=== PATIENT | male | born 1995 | race Caucasian/White ===

== ENCOUNTER 2020-10-21 19:17 | Emergency (ER) | payer BC ==
[~2020-10-21] VITALS: Ht 180.3 cm; Wt 74.0 kg
[2020-10-21] MEDS ORDERED: FAMOTIDINE 20 MG TABLET ONE (20:29)
[2020-10-21] MEDS ORDERED: ONDANSETRON ODT 4 MG ONE (20:29)
[2020-10-21] MEDS ORDERED: MAALOX/HYOSCYAMINE/LIDOCAINE 45 ML BTL PO ONE (20:30)
[2020-10-21] MEDS ORDERED: MAALOX/HYOSCYAMINE/LIDOCAINE 45 ML BTL ONE (20:30)
[2020-10-21] MEDS ORDERED: PLEASE ENTER ALLERGIES MC SCH (20:30)
[2020-10-21] MEDS ORDERED: FAMOTIDINE 20 MG TABLET PO ONE (20:30)
[2020-10-21] MEDS ORDERED: ONDANSETRON ODT 4 MG PO ONE (20:30)
--- NOTE | 2020-10-21 20:32 | NUR ---
PT MEDICATED PER MAR AT THIS TIME. MOM REMAINS AT BEDSIDE
[2020-10-21 20:49] LABS: BASOPHILS % (AUTO) 0 % (0-1); EOSINOPHILS % (AUTO) 2 % (1-7); LYMPHOCYTES % (AUTO) 21 % (22-44); MEAN CORPUSCULAR HEMOGLOBIN 29.1 pg (27.5-34.5); MEAN PLATELET VOLUME 10.1 fL (7.4-10.4); MONOCYTES % (AUTO) 12 % (2-9); NEUTROPHILS % (AUTO) 64 % (42-75); PLATELET COUNT 221 x10^3/uL (130-400); RED BLOOD COUNT 5.91 x10^6/uL (4.38-5.82)
[2020-10-21 21:00] LABS: ALBUMIN 3.7 g/dL (3.4-5.0); ANION GAP 9 mmol/L (5-15); CALCIUM 9.1 mg/dL (8.5-10.1); CHLORIDE 104 mmol/L (98-107)
[2020-10-21 21:04] LABS: ALANINE AMINOTRANSFERASE 32 U/L (12-78); ALKALINE PHOSPHATASE 54 U/L (45-117); BILIRUBIN,TOTAL 0.7 mg/dL (0.2-1.0); CREATININE 1.01 mg/dL (0.7-1.3); TOTAL PROTEIN 7.6 g/dL (6.4-8.2)
[2020-10-21 21:10] LABS: MD NO
--- NOTE | 2020-10-21 21:30 | NUR ---
PT STS FEELS A LITTLE BETTER BUT DOES NOT KNOW IF MEDS HELPED. AWAITING US READ
[2020-10-21 22:07] VITALS: BP 118/71
== END 2020-10-21 22:28 ==
LOC: ED 22:27
DX: K27.3 Acute peptic ulcer, site unspecified, without hemorrhage or perforation (principal)
CPT/HCPCS: 36415; 76700; 80053; 83690; 85025; 99284; Q0162